=== PATIENT | male | born 1965 | race Caucasian/White ===

== ENCOUNTER 2019-09-16 14:09 | Outpatient (CLI) | payer OTHER, SELFPAY ==
--- NOTE | ~2019-09-16 | US_ITS ---
US right upper quadrant DATE: 09/16/2019 14:36 INDICATION: Right upper quadrant abdominal pain TECHNIQUE: Real-time imaging of liver, pancreas, gallbladder areas COMPARISON: None FINDINGS: There is fatty infiltration of the liver. There is suboptimal penetration of the liver. 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 The pancreas is partially obscured by bowel gas and not optimally evaluated. Consider CT evaluation o f the pancreas is well. The common bile duct measures 4.1 mm. No gallstones or gallbladder wall thickening are evident. Negat amadeo sonographic Charlton's sign. IMPRESSION: Hepatic steatosis Suboptimal evaluation of the liver and pancreas; consider CT abdomen evaluation Reviewed, dictated and finalized at [facility]. Reviewed, dictated and finalized at [facility].
== END 2019-09-16 14:10 | disposition home or self-care (01) ==
PROVIDERS: PCP Family Medicine; Visit Provider Family Medicine
DX: R10.9 Unspecified abdominal pain (principal); K76.0 Fatty (change of) liver, not elsewhere classified
CPT/HCPCS: 76705